=== PATIENT | male | born 1965 | race Caucasian/White ===

== ENCOUNTER 2024-06-19 10:03 | Inpatient (IN) ==
--- NOTE | 2024-06-19 11:07 | XRay Report ---
XR chest 1V portable CLINICAL HISTORY: fever, PNA TECHNIQUE: Single frontal radiograph of the chest was obtained. Comparison: None available at the time of this dictation. FINDINGS: No lines and tubes are seen. The cardiomediastinal silhouette is normal. The lungs are clear. No evid ence of pleural effusion or pneumothorax. IMPRESSION: No acute abnormalities and in particular no radiographic evidence of pneumonia. ACT 112: Negative or not required by law. Electronically signed by: Eric Haider M.D. 06/19/2024 11:06 AM
[2024-06-19 12:05] LABS: Albumin Globulin Ratio 1.1 (0.9-2); Albumin Level 3.9 gm/dl (3.4-5.0); BUN Creatinine Ratio 18.6 (10-20); Calcium 8.9 mg/dl (8.6-10.3); Creatinine Clr Calc Pharmacy 71.3 ml/min; Est GFR (African American) 78.9 ml/min; Est GFR (Non-African American) 68.1 ml/min; Globulin 3.6 gm/dl (2.5-4.0); Potassium 3.8 mmol/L (3.5-5.1); Total Protein 7.5 gm/dl (6.0-8.3)
[2024-06-19 12:11] LABS: Hematocrit (blood only) 37.2 % (42.0-52.0); Hemoglobin 12.7 g/dl (14.0-18.0); Mean Corpuscular Hemoglobin 30.7 pg (25.0-34.0); Mean Corpuscular Hgb Conc 34.1 g/dL (32.0-36.0); Mean Corpuscular Volume 89.9 fL (80.0-100.0); Platelet Count 22 K/uL (130-400); RDW Standard Deviation 46.2 fL (36.4-46.3); Red Blood Count 4.14 M/uL (4.70-6.10); White Blood Count 4.58 K/ul (4.8-10.8)
[2024-06-19 12:18] LABS: Basophils # (auto) 0.02 K/uL (0.00-0.20); Basophils % (auto) 0.4 %; Immature Granulocytes # (auto) 0.02 K/uL (0.01-0.20); Immature Granulocytes % (auto) 0.4 %; Lymphocytes # (auto) 0.95 K/uL (1.20-3.40); Lymphocytes % (auto) 20.7 %; Monocytes % (auto) 4.4 %; Neutrophils # (auto) 3.39 K/uL (1.40-6.50); Neutrophils % (auto) 74.1 %
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
[2024-06-19 12:35] LABS: Echinocytes 1+; Parasites Present; Platelet Estimate Signific. Decreased (Normal)
[2024-06-19 12:46] LABS: Adenovirus PCR Not Detected (NotDetected); Bordetella parapertussis PCR Not Detected (NotDetected); Bordetella pertussis PCR Not Detected (NotDetected); Chlamydia pneumoniae PCR Not Detected (NotDetected); Coronavirus 229E PCR Not Detected (NotDetected); Coronavirus CoV-2 (COVID19)PCR Not Detected (NotDetected); Coronavirus HKU1 PCR Not Detected (NotDetected); Coronavirus NL63 PCR Not Detected (NotDetected); Coronavirus OC43PCR Not Detected (NotDetected); Human Metapneumovirus PCR Not Detected (NotDetected); Influenza A PCR Not Detected (NotDetected); Influenza B PCR Not Detected (NotDetected); Mycoplasma pneumoniae PCR Not Detected (NotDetected); Parainfluenza Virus 1 PCR Not Detected (NotDetected); Parainfluenza Virus 2 PCR Not Detected (NotDetected); Parainfluenza Virus 3 PCR Not Detected (NotDetected); Parainfluenza Virus 4 PCR Not Detected (NotDetected); Respiratory Syncytial VirusPCR Not Detected (NotDetected); Rhinovirus/Enterovirus PCR Not Detected (NotDetected)
[2024-06-19] MEDS: AZITHROMYCIN 500 MG in DEXTROSE 5% 250 ML IV ONE (12:54)
[2024-06-19] MEDS: ATOVAQUONE 750 MG/5 ML UDC PO SCH (12:54)
[2024-06-19 13:03] LABS: Lyme Screen Rflx Confirmation Positive (Negative)
[2024-06-19] MEDS ORDERED: DEXTROSE 50% 50 ML SYRINGE IV PRN (13:35)
[2024-06-19] MEDS ORDERED: CARBOHYDRATES FOR HYPOGLYCEMIA PO PRN ×2 (13:35→15:39)
[2024-06-19] MEDS ORDERED: GLUCAGON FOR INJ 1 MG VIAL SQ PRN (13:35)
[2024-06-19] MEDS ORDERED: MELATONIN 3 MG TAB PO PRN (13:35)
[2024-06-19] MEDS ORDERED: GLUCOSE 10 TAB/TUBE PO PRN (13:35)
[2024-06-19] MEDS ORDERED: GLUCOSE 40% GEL 15 GM TUBE PO PRN (13:35)
[2024-06-19] MEDS ORDERED: ONDANSETRON INJ 2 MG/ML 2 ML VIAL IV PRN (13:35)
[2024-06-19 13:37] LABS: Lyme Ab IgG 2nd Tier Confirm Positive (Negative); Lyme Ab IgM 2nd Tier Confirm Positive (Negative)
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
[2024-06-19] MEDS: SODIUM CHLORIDE 0.9% 1,000 ML IV SCH (14:11)
[2024-06-19] MEDS: cefTRIAXone SODIUM 2,000 MG/50 ML BAG IV SCH (14:11)
--- OUTSIDE RECORDS SUMMARY | 2024-06-19 15:29 | External Medical Summary | Continuity of Care Document ---
Author Name Unknown Organization [facility] [address] [place] [phone] Care Team Providers Care Power And Recovery Superintendent Name Role Phone Jem Lei Primary Care Physician [phone] Encounter [facility] [id number] Date(s): 05/10/24 - 05/10/24 [facility] [address] [facility] [address] [facility] [address] [place] [address] [phone] Encounter Diagnosis Shoulder pain, right(Discharge Diagnosis) - 05/10/24 Discharge Disposition: Home or Self Care Attending Physician: DO Lei Franklin J Allergies, Adverse Reactions, Alerts No Known Allergies Assessment and Plan Extracted from: Title:Office Visit Note Author:GABBIE Castro, Stacie Hernandez Date:05/10/24 1.Shoulder pain, right STATUS:Acute, uncomplicated illness/injury DATA:Labs reviewed. GOAL:Maintain stability. PLAN:Cont current monitoring. .Medrol dose pack as directed Continue icing and stretching If health care coach not beneficial, will proceed with physical therapy Patient to call in 7-10 days with progress report, sooner if symptoms worsening Time spent on pre-visit plannin min Face to face time spent w/ patient: 16 min Time spent documenting pertinent clinical information into the EMR: 4 min Total time: 23 min Immunizations Given and Recorded Vaccine Date Status Refusal Reason SARS-CoV-2 (COVID-19) mRNA-1273 vaccine 1 03/24/21 Recorded SARS-CoV-2 (COVID-19) mRNA-1273 vaccine 2 02/24/21 Recorded 1Result Comment: 2022-11-17: Historical information-source unspecified 2Result Comment: 2022-11-17: Historical information-source unspecified Medications Medrol Dosepak 4 mg oral tablet Start: 05/10/24 10:26:00 AM EDT, See Instructions, Disp# 21 tab, Take as directed on package labelingfor 6 days., Pharmacy: [id number] Start Date: 05/10/24 Stop Date: 05/16/24 Status: Ordered MetFORMIN (Eqv-Glucophage XR) 500 mg oral tablet, extended release Start: 03/01/24 4:41:00 PM EDT, 1 tab, PO, Daily, Disp# 90 tab, Refills: 1, Pharmacy: [id number] Start Date: 03/01/24 Stop Date: 08/28/24 Status: Ordered multivitamin Start: 05/17/19 1:50:00 PM EDT, 1 tab, PO, Daily Start Date: 05/17/19 Status: Ordered rosuvastatin 10 mg oral tablet Start: 08/25/23 4:24:00 PM EDT, 1 tab, PO, qhs, Disp# 90 tab, Refills: 3, Pharmacy: [id number] Start Date: 08/25/23 Stop Date: 08/19/24 Status: Ordered Shingrix intramuscular injection Start: 11/17/22 3:51:00 PM EST, 0.5 mL, IM, ONCE, Disp# 1 each, Pharmacy: [id number] Start Date: 11/17/22 Status: Ordered ZyrTEC 10 mg oral tablet Start: 12/03/21 8:29:00 AM EST, 1 tab, PO, Daily, PRN: as needed for allergy symptoms Start Date: 12/03/21 Status: Ordered Mental Status 05/10/24 Barriers to Learning one year None evide nt Mandatory Health Literacy Documentation Yes Health Literacy Communication Barriers N ever Primary Language Persian Problem List Condition Confirmation Course Effective Dates Status Health St atus Informant Elevated cholesterol Confirmed Active IFG (impaired fasting glucose) Confirmed Active PVD (posterior vitreous detachment) Confirmed Active Weight disorder Confirmed Active Diagnosis Diagnosis Type Effective Dates Health Status Cl inical Service Informant Shoulder pain, right Discharge Diagnosis 05/10/24 Non-Specified Procedures Procedure Date Related Diagnosis Body Site Status cologuard 1 06/16/19 Completed Vasectomy Completed 1negative Vital Signs Most recent to oldest [Reference Range]: 1 Patient Weight 81.7 kg (05/10/24 10:06 AM) Temperature [36.5-37.9 DegC] 36.6 DegC (05/10/24 10:06 AM) Heart Rate 60 bpm (05/10/24 10:06 AM) Respiratory Rate 20 br/min (05/10/24 10:06 AM) Blood Pressure 120/76mmHg (05/10/24 10:06 AM) Cuff Pulse Pressure 44 mmHg (05/10/24 10:06 AM) Social History Social History Type Response Smoking Status Never smoked cigaret zane Sex FCM Outpt Note * GABBIE Castro, Katrin Hernandez: PERFORM Event Display: FCM Outpt Note Authored Date: [id number] Chief Complaint right shoulder pain x five days History of Present Illness Patient is a 58 yo male who presents for acute visit (R) shoulder pain: -Has acute posteriorshoulder pain x 5 days -Has been driving excessive distances over the past month -Had similar -Specific movements such as pushing, moving his mouse, driving all increase his pain. -Has associated numbness in his right arm/hand -Ibuprofen did not help nor did Lidocaine -Icing, tennis balls both seem to help -Denies HILLIARD, vision changes Review of Systems ROS per HPI Physical Exam Vitals & Measurements T:36.6C HR:60(Monitored) RR:20 BP:120/76 SpO2:98% WT:81.7kg WT:81.700kg(Dosing) PHQ2 Data(Data Documented on:05/10/2024 10:03) Emotional health assessment NEGATIVE Gen Appearance: Well developed, well nourishedNAD. A&O x 3. HEENT: Head is normocephalic/atraumatic. EXTREMITIES: No cyanosis, clubbing or edema. MUSCULOSKELETAL: Intact arm ROM with diffuse pain in the trapezius.. Diffuse R paraspinal and trap TTP and palpable spasm/knotting appreciated. Neg spurlings bilat. NEUROLOGICAL: Grossly non-focal exam. SKIN: Warm and dry without any rash. Assessment/Plan 1.Shoulder pain, right STATUS:Acute, uncomplicated illness/injury DATA:Labs reviewed. GOAL:Maintain stability. PLAN:Cont current monitoring. .Medrol dose pack as directed Continue icing and stretching If health care coach not beneficial, will proceed with physical therapy Patient to call in 7-10 days with progress report, sooner if symptoms worsening Time spent on pre-visit plannin min Face to face time spent w/ patient: 16 min Time spent documenting pertinent clinical information into the EMR: 4 min Total time: 23 min Problem List/Past Medical History Ongoing Elevated cholesterol IFG (impaired fasting glucose) PVD (posterior vitreous detachment) Weight disorder Procedure/Surgical History cologuard| Service Date: 06/16/2019Vasectomy Medications cetirizine(ZyrTEC 10 mg oral tablet), 10 mg= 1 tab, PO, Daily, PRN metFORMIN(MetFORMIN (Eqv-Glucophage XR) 500 mg oral tablet, extended release), 500 mg= 1 tab, PO, Daily, 1 refills methylPREDNISolone(Medrol Dosepak 4 mg oral tablet), See Instructions multivitamin, 1 tab, PO, Daily rosuvastatin(rosuvastatin 10 mg oral tablet), 10 mg= 1 tab, PO, qhs, 3 refills zoster vaccine, inactivated(Shingrix intramuscular injection), 0.5 mL, IM, ONCE Allergies NKA Social History Smoking Status Never smoked cigarettes Family History Hyperlipidemia: Mother and Brother. Health Status Family Member(s) Father: History is negative Immunizations Vaccine Date Status SARS-CoV-2 (COVID-19) mRNA-1273 vaccine 03/24/2021 Recorded Comments : 2022-11-17: Historical information-source unspecified SARS-CoV-2 (COVID-19) mRNA-1273 vaccine 02/24/2021 Recorded Comments : 2022-11-17: Historical information-source unspecified Recommendations Health Maintenance Pending(in the next year) Due Adult Influenza Vaccine due05/07/24and every 1year Adult COVID-19 Vaccination due05/10/24Unknown Frequency Adult Social Determinants of Health Screening due05/10/24Unknown Frequency Adult Tdap/Td Vaccine due05/10/24Unknown Frequency Hepatitis C Screening due05/10/24One-time only Shingles Vaccine due05/10/24One-time only Satisfied(in the past 1 year) Satisfied Body Mass Index on08/25/23.Satisfied by OBDULIO Núñez Emma Electronic Signature on File Electronically Reviewed/Signed by: Katrin Castro PA-C Author Signature Dt/Tm:05/10/2024 10:28 AM Department of Family Medicine [facility] Patient Care team information Care Team Personnel Name: DO Lei Franklin J Position: Physician - Family Med Member Role: Primary Care Provider Address: Address: [address] [phone] Care Team Related Persons Name: FAISAL GONZALEZ Address: [place] Address: home [address] [place], [place] [address] [phone] Name: GUI GONZALEZ Address: [address] [phone]
--- OUTSIDE RECORDS SUMMARY | 2024-06-19 15:29 | External Medical Summary ---
Author Name Unknown Address Unknown Organization : Laboratory Report Ordering Provider Test Date Status Quique Parish 06/09/2024 07:43:00 Final Observation Date Value Abnormality Reference (Units ) Status eAG (mmol/L) 06/13/2024 16:50:00 7.6 (mmol/L ) Final
This test was performed on the Bria ambar c503 platform.
Effective 10/25/23, a change in test platforms from the
Goetz Rnp to the Bria ambar c503 may have shifted
HbA1c results compared to historical results.
Based on laboratory validation testing conducted at
[facility], the Bria platform relative to the Goetz
platform had an average increase in HbA1c value of
< or = 0.3%. This difference is within accepted
variability established by the National Glycohemoglobin
Standardization Program. Note that not all individuals
will have had a shift in their results and direct
comparisons between historical and current results for
testing conducted on different platforms is not
recommended.

Specimen Received d/t: 06/09/2024 22:14:00

Lab test performed by:
[facility], [facility]
[address]
[place] [phone]
Dax Gregory MD eAG (mg/dL) 06/13/2024 16:50:00 137 (mg/dL) Final
Specimen Received d/t: 06/09/2024 22:14:00

Lab test performed by:
[facility]
[address]
[place] [phone]
Dax Gregory MD Hemoglobin A1c/Hemoglobin.total in Blood 06/13/2024 16:50:00 6.4 Above high normal <5.7 (% of total Hgb) Final For someone without known di abetes, a hemoglobin
A1c value between 5.7% and 6.4% is consistent with
prediabetes and should be confirmed with a
follow-up test.

For someone with known diabetes, a value <7%
indicates that their diabetes is well controlled. A1c
targets should be individualized based on duration of
diabetes, age, comorbid conditions, and other
considerations.

This assay result is consistent with an increased risk
of diabetes.

Currently, no consensus exists regarding use of
hemoglobin A1c for diagnosis of diabetes for children.

Specimen Received d/t: 06/09/2024 22:14:00

Lab test performed by:
[facility], [facility]
[address]
[place] [phone]
Dax Gregory MD Performing Location
--- OUTSIDE RECORDS SUMMARY | 2024-06-19 15:29 | External Medical Summary ---
Author Name Unknown Address Unknown Organization : Laboratory Report Ordering Provider Test Date Status Quique Parish 02/23/2024 07:50:00 Final Observation Date Value Abnormality Reference (Units ) Status LDL Chol 02/24/2024 07:31:00 73 (mg/dL (ca lc)) Final Reference range: <100
<b r/>Desirable range <100 mg/dL for primary prevention;
<70 mg/dL for patients with CHD or diabetic patients
with > or = 2 CHD risk factors.

LDL-C is now calculated using the [place] Bernard
calculation, which is a validated novel method providing
better accuracy than the Friedewald equation in the
estimation of LDL-C.
Wm TORRES et al. GHANSHYAM. 2013;310(19): 2061- 2068
(http://education.Mapittrackit/faq/MLN314)

Specimen Received d/t: 02/23/2024 23:56:00

Lab test performed by:
[facility], [facility]
[address]
[place] [phone]
Dax Gregory MD Non HDL Chol 02/24/2024 07:31:00 85 <130 (m g/dL (calc)) Final For patients with diabetes p elsa 1 major ASCVD risk
factor, treating to a non-HDL-C goal of <100 mg/dL
(LDL-C of <70 mg/dL) is considered a therapeutic
option.

Specimen Received d/t: 02/23/2024 23:56:00

Lab test performed by:
[facility], [facility]
[address]
[place] [phone]
Dax Gregory MD Cholesterol [Mass/volume] in Serum or Plasma 02/24/2024 07:31:00 136 <200 (mg/dL) Final
Specimen Received d/t: 02/23/2024 23:56:00

Lab test performed by:
[facility], [facility]
[address]
[place] [phone]
Dax Gregory MD Triglyceride [Mass/volume] i n Serum or Plasma 02/24/2024 07:31:00 50 <150 (mg/dL) Final
Specimen Received d/t: 02/23/2024 23:56:00

Lab test performed by:
[facility], [facility]
[address]
[place] [phone]
Dax Gregory MD Cholesterol.total/Cholestero l in HDL [Mass Ratio] in Serum or Plasma 02/24/2024 07:31:00 2.7 <5 .0 ((calc)) Final
Specimen Received d/t: 02/23/2024 23:56:00

Lab test performed by:
[facility], [facility]
[address]
[place] [phone]
Dax Gregory MD Cholesterol in HDL [Mass/vol ume] in Serum or Plasma 02/24/2024 07:31:00 51 > OR = 40 (mg/dL) Final
Specimen Received d/t: 02/23/2024 23:56:00

Lab test performed by:
[facility], [facility]
[address]
[place] [phone]
Dax Gregory MD Performing Location
--- OUTSIDE RECORDS SUMMARY | 2024-06-19 15:29 | External Medical Summary ---
Author Name Unknown Address Unknown Organization : Laboratory Report Ordering Provider Test Date Status [facility] 06/09/2024 07:43:00 Final Observation Date Value Abnormality Reference (Units ) Status Chloride [Moles/volume] in Serum or Plasma 06/13/2024 16:50:00 103 98-110 (mmol/L) Final
Specimen Received d/t: 06/09/2024 22:14:00

Lab test performed by:
[facility], [facility]
[address]
[place] [phone]
Dax Gregory MD Creatinine [Mass/volume] in Serum or Plasma 06/13/2024 16:50:00 0.96 0.70-1.30 (mg/dL) Fin al
Specimen Received d/t: 06/09/2024 22:14:00

Lab test performed by:
[facility], [facility]
[address]
[place] [phone]
Dax Gregory MD [facility] 06/13/2024 16:50:00 9.4 8.6-10.3 ( mg/dL) Final
Specimen Received d/t: 06/09/2024 22:14:00

Lab test performed by:
[facility], [facility]
[address]
[place] [phone]
Dax Gregory MD Urea nitrogen/Creatinine [Ma ss Ratio] in Serum or Plasma 06/13/2024 16:50:00 SEE NOTE: 6-22 ((c alc)) Final Not Reported: BUN and Creati nine are within
reference range.

Specimen Received d/t: 06/09/2024 22:14:00

Lab test performed by:
[facility], [facility]
[address]
[place] [address]
Dax Gregory MD Potassium [Moles/volume] in Serum or Plasma 06/13/2024 16:50:00 4.0 3.5-5.3 (mmol/L) Jocelyn l
Specimen Received d/t: 06/09/2024 22:14:00

Lab test performed by:
[facility], [facility]
[address]
[place] [address]
Dax Gregory MD Urea nitrogen [Mass/volume] in Serum or Plasma 06/13/2024 16:50:00 14 7-25 (mg/dL) Final
Specimen Received d/t: 06/09/2024 22:14:00

Lab test performed by:
[facility], [facility]
[address]
[place] [address]
Dax Gregory MD Carbon dioxide, total [Moles /volume] in Serum or Plasma 06/13/2024 16:50:00 30 20-32 (mmol/L) Fin al
Specimen Received d/t: 06/09/2024 22:14:00

Lab test performed by:
[facility], [facility]
[address]
[place] [address]
Dax Gregory MD Sodium [Moles/volume] in Ser um or Plasma 06/13/2024 16:50:00 139 135-146 (mmol/L) Jocelyn l
Specimen Received d/t: 06/09/2024 22:14:00

Lab test performed by:
[facility], [facility]
[address]
[place] [phone]
Dax Gregory MD eGFR 06/13/2024 16:50:00 92 > OR = 60 (mL/min/1.73m2) Final
Specimen Received d/t: 06/09/2024 22:14:00

Lab test performed by:
[facility], [facility]
[address]
[place] [phone]
Dax Gregory MD Glucose [Mass/volume] in Serum or Plasma 06/13/2024 16:50:00 117 Above high normal 65-99 (mg/dL) Final
Fasting reference inte rval

For someone without known diabetes, a glucose value
between 100 and 125 mg/dL is consistent with
prediabetes and should be confirmed with a
follow-up test.

Specimen Received d/t: 06/09/2024 22:14:00

Lab test performed by:
[facility], [facility]
[address]
[place] [phone]
Dax Gregory MD Performing Location
--- OUTSIDE RECORDS SUMMARY | 2024-06-19 15:29 | External Medical Summary ---
Author Name Unknown Address Unknown Organization : Laboratory Report Ordering Provider Test Date Status Quique Parish 02/23/2024 07:50:00 Final Observation Date Value Abnormality Reference (Units ) Status eAG (mg/dL) 02/24/2024 07:31:00 134 (mg/dL) Final
Specimen Received d/t: 02/23/2024 23:56:00

Lab test performed by:
[employer], [facility]
[address]
[place] [address]
Dax Gregory MD Hemoglobin A1c/Hemoglobin.total in Blood 02/24/2024 07:31:00 6.3 Above high normal <5.7 (% of total [...] of diabetes for children.

Specimen Received d/t: 02/23/2024 23:56:00

Lab test performed by:
[employer] [facility], [facility]
[address]
[place] [phone]
Dax Gregory MD eAG (mmol/L) 02/24/2024 07:31:00 7.4 (mmol/L ) Final
This test was performed on the Bria ambar c503 platform.
Effective 10/25/23, a change in test platforms from the
[employer]etz [employer] to the Bria ambar c503 may have shifted
HbA1c results compared to historical results.
Based on laboratory validation testing conducted at
[facility], the Bria platform relative to the Goetz
[...] platforms is not
recommended.

Specimen Received d/t: 02/23/2024 23:56:00

Lab test performed by:
[facility]
[address]
[place] [phone]
Dax Gregory MD Performing Location
[2024-06-19] MEDS: INSULIN ASPART PER UNIT CHARGE SC SCH (17:22)
[2024-06-19] MEDS: ACETAMINOPHEN 325 MG TAB PO PRN (20:56)
[2024-06-19] MEDS: LANTUS PER UNIT CHARGE SQ SCH (20:57)
[2024-06-20] MEDS: ACETAMINOPHEN 500 MG TAB PO ONE (07:39)
[2024-06-20 07:51] LABS: Estimated Average Glucose 140 mg/dl; Hemoglobin A1C 6.5 % (4.5-5.6)
[2024-06-20 07:55] LABS: Hematocrit (blood only) 27.6 % (42.0-52.0); Hemoglobin 9.7 g/dl (14.0-18.0); Mean Corpuscular Hemoglobin 30.3 pg (25.0-34.0); Mean Corpuscular Hgb Conc 35.1 g/dL (32.0-36.0); Mean Corpuscular Volume 86.3 fL (80.0-100.0); Platelet Count 21 K/uL (130-400); RDW Standard Deviation 44.2 fL (36.4-46.3)
[2024-06-20 08:17] LABS: Albumin Level 2.8 gm/dl (3.4-5.0); Bilirubin,Total 2.4 mg/dl (0.2-1.0); Calcium 7.4 mg/dl (8.6-10.3); Creatinine Clr Calc Pharmacy 80.1 ml/min; Est GFR (African American) 90.9 ml/min; Est GFR (Non-African American) 78.4 ml/min; Globulin 2.9 gm/dl (2.5-4.0); Total Protein 5.7 gm/dl (6.0-8.3)
[2024-06-20 08:29] LABS: Thyroid Stimulating Hormone 8.233 uIu/ml (0.300-4.500)
[2024-06-20 08:38] LABS: Basophils # (auto) 0.02 K/uL (0.00-0.20); Basophils % (auto) 0.4 %; Immature Granulocytes # (auto) 0.05 K/uL (0.01-0.20); Lymphocytes # (auto) 1.61 K/uL (1.20-3.40); Lymphocytes % (auto) 32.9 %; Monocytes # (auto) 0.52 K/uL (0.11-0.59); Monocytes % (auto) 10.6 %; Neutrophils % (auto) 55.1 %; Polychromasia 1+
[2024-06-20 09:10] LABS: T4 Free Thyroxine 0.8 ng/dl (0.61-1.60)
[2024-06-20 10:14] LABS: Chol HDL Ratio 32.3 (0-5)
--- NOTE | 2024-06-20 12:10 | Medical Student Progress Note ---
Date of Service June 20, 2024 Assessment & Plan (1) Diabetes mellitus due to underlying condition: (2) Acute Lyme disease: (3) Babesiosis: Plan 1. Acute babesiosis and Acute Lyme disease Coinfection - Coinfection - Continue atovaquone 750 mg twice daily for babesiosis - Continue azithromycin 500 mg IV daily for babesiosis - Received ceftriaxone 2 g IV yesterday for Lyme Disease. Patient is stable and without neuroborreliosis, lyme carditis, or resistant lyme arthritis, so we will cancel IV ceftriaxone for Lyme at this time and instead treat with doxycycline 100 mg PO BID. Doxy would also cover for anaplasmosis, should he have that as an undetected tickborne illness. - Transaminitis secondary to acute tickborne illness infection. LFTs are stable today at AST 298 and ALT 218. Will continue to monitor LFTs. - Thrombocytopenia secondary to tickborne illness infection. Platelets are stable at 21. Monitor daily for platelet count and signs of bleeding. - Leukopenia secondary to tickborne illness. WBCs increased to 4.9 since yesterday. Will continue to monitor daily. - Parasitemia 2% - Will consider d/c home once pt's lab abnormalities have stabilized and he has been fever free for 24 hr. 2. Hyponatremia - Na of 130 yesterday, 131 today - Likely secondary to hypovolemic hyponatremia - Patient is not symptomatic, so we will continue to monitor - AM CMP, CBC 3. Dyslipidemia. Hold statin therapy secondary to transaminitis. 4. Diabetes mellitus type 2 [id number]. We have ordered Accu-Cheks to be called less than 80 or greater than 180. - Glucoses of 102-107 today Admission and Anticipated Discharge Date Admission Date: June 19, 2024 Supervising Attestation I personally examined the patient and verified all brown points of history and exam, discussed case, and agree with decision making with Dr Lantigua and Anny Syed MS4 Feeling a little bit better than yesterday. Still fairly weak, but no fevers yet today and bodyaches are slightly improved. Vitals noted, in general he is awake and alert pleasant no distress. HEENT normocephalic atraumatic mucous membranes moist. Breathing unlabored no accessory muscle use good effort. Skin without rashes pallor or icterus. Neuro without focal deficits. Babesiosis with concomitant Lymesepsis present on admissionfortunately improving. Suspect the predominance of his sepsis was due to Babesia more so than the Lyme diseasebut obviously both require treatment. Parasitemia 2% which is reassuringsuspect his lab abnormalities will start to stabilize, hem olytic anemia will likely stabilizecontinue to follow at least into tomorrow. Continue azithromycin and atovaquone for babesiosis, switch to doxycycline to cover for Lyme. Hopefully home once he is 24 hours afebrile, presuming that he is also continuing to feel better and his lab abnormalities have stabilized. otherwise as above Valorie Harry is a 58-year-old male who presented yesterday in the emergency department with complaints of fatigue and on and off fever x 2 weeks. In the emergency department he was found to be thrombocytopenic, leukopenic, and anemic with some transaminitis and hyperbilirubinemia. Babesiosis smear appeared positive and Lyme test appeared positive. Today, reports his fatigue is minimally improved. He is not feeling as feverish, but is very diaphoretic. He has had intermittent chills and dry cough. Denies nausea, vomiting, diarrhea, constipation, abdominal pain, myalgias/arthralgias, chest pain, SOB, palpitations, congestion, vision changes, lightheadedness, dizziness. Review of Systems Review of Systems: As noted in HPI. Physical Exam Physical Exam: General: Pleasant 58-year-old male is alert and oriented x 3, exam appears his stated age. He interacts appropriately pleasantly. HEENT: Normocephalic atraumatic. No scleral icterus, no conjunctival injection. Septum is in the midline, nose is without discharge, oral mucosa is pink and dry without lesion. NECK: Supple, no rigidity, full ROM. HEART: Regular rate and rhythm. No murmurs, rubs, gallops. LUNGS: Clear to auscultation bilaterally ABDOMEN: Soft, nontender, nondistended EXTREMITIES: Full ROM, no peripheral cyanosis or edema. INTEGUMENTARY: No magnolia rashes appreciated on his skin. No petechiae. NEUROLOGICAL: No focal deficit elicited upon examination. Results & Data Vital Signs (Past 12 Hours) Vital Signs Temp Pulse Resp BP Pulse Ox O2 Del Method 06/20/24 10:23 37.2 C 89 18 105/68 92 Room Air 06/20/24 08:26 37.2 C 06/20/24 07:13 39.0 C H 103 H 16 124/69 90 Room Air 06/19/24 23:50 36.9 C Laboratory Results 06/20/24 09:23 Blood Parasites Smear - Preliminary Blood Blood Parasite Smear ID - Pending 06/20/24 06/20/24 06/20/24 11:45 07:37 07:08 WBC 4.90 RBC 3.20 L Hgb 9.7 L D Hct 27.6 L MCV 86.3 MCH 30.3 MCHC 35.1 RDW Std Deviation 44.2 RDW Coeff of [place] 14.0 Plt Count 21 L* Immature Gran % (Auto) 1.0 Neut % (Auto) 55.1 Lymph % (Auto) 32.9 Redwood % (Auto) 10.6 Eos % (Auto) 0.0 Baso % (Auto) 0.4 Neut # (Auto) 2.70 Lymph # (Auto) 1.61 Redwood # (Auto) 0.52 Eos # (Auto) 0.00 Baso # (Auto) 0.02 Immature Gran # (Auto) 0.05 Polychromasia 1+ Peripher Smr Path Cons Sodium 131 L Potassium 4.0 Chloride 101 Carbon Dioxide 24 Anion Gap 6 BUN 21 Creatinine 1.05 Est Cr Clr Drug Dosing 80.1 Est GFR ( Amer) 90.9 Est GFR (Non-Af Amer) 78.4 BUN/Creatinine Ratio 20.0 Glucose 107 H POC Glucose 102 H 107 H Estimat Average Glucose 140 Hemoglobin A1c 6.5 H Calcium 7.4 L Magnesium 2.0 Total Bilirubin 2.4 H AST 298 H ALT 218 H Alkaline Phosphatase 75 Total Protein 5.7 L D Albumin 2.8 L Globulin 2.9 Albumin/Globulin Ratio 1.0 Triglycerides 337 H Cholesterol 97 LDL Cholesterol, Calc 27 VLDL Cholesterol, Calc 67 H HDL Cholesterol 3 Cholesterol/HDL Ratio 32.3 H TSH 8.233 H Free T4 0.80 Lyme Disease Screen Lyme Tier 2 IgG Confirm Lyme Tier 2 IgM Confirm Monoscreen 06/19/24 06/19/24 06/19/24 20:25 16:38 15:23 WBC RBC Hgb Hct MCV MCH MCHC RDW Std Deviation RDW Coeff of Chester Plt Count Immature Gran % (Auto) Neut % (Auto) Lymph % (Auto) Redwood % (Auto) Eos % (Auto) Baso % (Auto) Neut # (Auto) Lymph # (Auto) Redwood # (Auto) Eos # (Auto) Baso # (Auto) Immature Gran # (Auto) Polychromasia Peripher Smr Path Cons Sodium Potassium Chloride Carbon Dioxide Anion Gap BUN Creatinine Est Cr Clr Drug Dosing Est GFR ( Amer) Est GFR (Non-Af Amer) BUN/Creatinine Ratio Glucose POC Glucose 97 251 H 225 H Estimat Average Glucose Hemoglobin A1c Calcium Magnesium Total Bilirubin AST ALT Alkaline Phosphatase Total Protein Albumin Globulin Albumin/Globulin Ratio Triglycerides Cholesterol LDL Cholesterol, Calc VLDL Cholesterol, Calc HDL Cholesterol Cholesterol/HDL Ratio TSH Free T4 Lyme Disease Screen Lyme Tier 2 IgG Confirm Lyme Tier 2 IgM Confirm Monoscreen 06/19/24 11:06 WBC RBC Hgb Hct MCV MCH MCHC RDW Std Deviation RDW Coeff of [place] Plt Count Immature Gran % (Auto) Neut % (Auto) Lymph % (Auto) Redwood % (Auto) Eos % (Auto) Baso % (Auto) Neut # (Auto) Lymph # (Auto) Redwood # (Auto) Eos # (Auto) Baso # (Auto) Immature Gran # (Auto) Polychromasia Peripher Smr Path Cons Sodium Potassium Chloride Carbon Dioxide Anion Gap BUN Creatinine Est Cr Clr Drug Dosing Est GFR ( Amer) Est GFR (Non-Af Amer) BUN/Creatinine Ratio Glucose POC Glucose Estimat Average Glucose Hemoglobin A1c Calcium Magnesium Total Bilirubin AST ALT Alkaline Phosphatase Total Protein Albumin Globulin Albumin/Globulin Ratio Triglycerides Cholesterol LDL Cholesterol, Calc VLDL Cholesterol, Calc HDL Cholesterol Cholesterol/HDL Ratio TSH Free T4 Lyme Disease Screen Positive H Lyme Tier 2 IgG Confirm Positive H Lyme Tier 2 IgM Confirm Positive H Monoscreen Negative
--- NOTE | 2024-06-20 12:41 | Billing Data ---
Date of Service June 20, 2024 Coding Level of Care Code 28195 SUB INP/OBS CARE MIN
[2024-06-20] MEDS: AZITHROMYCIN 500 MG in DEXTROSE 5% 250 ML IV SCH (13:19)
[2024-06-20 14:12] LABS: EBV Nuclear Ag Antibody <18.00 U/mL; EBV Virus Capsid Ag IgG Ab <18.00 U/mL; Epstein Barr Virus Early Ag Ab <9.00 U/mL
[2024-06-20] MEDS: DOXYCYCLINE HYCLATE 100 MG CAP PO SCH (19:33)
[2024-06-21 08:12] LABS: Hematocrit (blood only) 25.8 % (42.0-52.0); Hemoglobin 9.1 g/dl (14.0-18.0); Mean Corpuscular Hemoglobin 30.3 pg (25.0-34.0); Mean Corpuscular Hgb Conc 35.3 g/dL (32.0-36.0); Platelet Count 22 K/uL (130-400); RDW Coefficient of Variation 14.5 % (11.5-14.5); RDW Standard Deviation 44.9 fL (36.4-46.3); White Blood Count 5.72 K/ul (4.8-10.8)
[2024-06-21 08:33] LABS: Albumin Level 2.7 gm/dl (3.4-5.0); BUN Creatinine Ratio 15.8 (10-20); Calcium 7.3 mg/dl (8.6-10.3); Creatinine Clr Calc Pharmacy 88.6 ml/min; Est GFR (African American) 102.6 ml/min; Est GFR (Non-African American) 88.5 ml/min; Globulin 2.7 gm/dl (2.5-4.0); Potassium 3.9 mmol/L (3.5-5.1); Total Protein 5.4 gm/dl (6.0-8.3)
[2024-06-21 09:00] LABS: ANC (manual) 2.23 K/uL (1.4-6.5); Basophils # (manual) 0.11 K/uL (0-0.2); Basophils % (manual) 2 %; Large Granular Lymph # (manua 0.69 K/uL; Large Granular Lymph % (manual) 12 %; Lymphocytes # (manual) 2.52 K/uL (1.2-3.4); Lymphocytes % (manual) 44 %; Monocytes # (manual) 0.17 K/uL (0.11-0.59); Monocytes % (manual) 3 %; Neutrophils # (manual) 2.23 K/uL (1.40-6.50); Neutrophils % (manual) 39 %
--- NOTE | 2024-06-21 13:28 | Discharge Summary ---
Date of Service June 21, 2024 Admission HPI Per Admitting Provider Very pleasant 58-year-old male who presents today in the emergency department with complaints of fatigue and on and off fever x 2 weeks. He denies any other symptoms. He presented to emergency department for further evaluation and treatment. In the emergency department he was found to be thrombocytopenic with some transaminitis and hyperbilirubinemia. Babesiosis smear appears positive and Lyme test appears positive. His other laboratory studies include thrombocytopenia, leukopenia, mild hyponatremia and a random blood glucose of 168. Course in the emergency department patient received atovaquone 750 mg orally and azithromycin 500 mg IV. Regarding the patient further evaluation and treatment. Will continue the dual antimicrobial therapy for babesiosis including atovaquone: 750 twice daily as well as azithromycin 500 IV daily. Will add ceftriaxone 2 g IV daily for the Lyme disease. Will monitor the patient's LFTs and hematology labs daily.. Will stop the patient's statin therapy. She actually began to hold this 2 days ago due to his aches and pains. Will use Tylenol but only every 12 hours given the LFTs:, For fever. Admission Exam Per Admitting Provider In General: Pleasant 58-year-old male is alert vented x 3, exam appears her stated age. Accompanied by his at the time of my examination. He interacts appropriately pleasantly. HEENT: Normocephalic atraumatic pupils are equal round and reactive to light bilaterally. No scleral icterus no conjunctival injection external auditory canals are patent septum is in the midline nose is without discharge oral mucosa is pink and dry without lesion. NECK: Supple no rigidity no lymphadenopathy no thyromegaly no carotid bruits no JVD no masses. HEART: Regular rate and rhythm I do not appreciate any ectopy or rub. No murmur. LUNGS: Clear to auscultation bilaterally and anteriorly with no evidence of adventitious sounds/wheezes rales or rhonchi. ABDOMEN: Soft nontender, no rebound, no peritoneal signs, positive bowel sounds, no appreciable organomegaly. EXTREMITIES: Intact, no peripheral cyanosis, clubbing or edema. Strength is 5 out of 5 in extremities x4, no pathological reflexes. No magnolia rashes appreciated on his skin. He has had Lyme disease years ago and he did have a classic bull's-eye rash, erythema migrans. NEUROLOGICAL: Cranial nerves II through XII are grossly intact with no focal deficit elicited upon examination. Currently prescribed. Present. Principal Diagnosis Babesiosis/Lyme disease Discharge Exam General: Pleasant 58-year-old male is alert and oriented x 3, exam appears his stated age. He interacts appropriately pleasantly. HEENT: Normocephalic atraumatic. No scleral icterus, no conjunctival injection. Septum is in the midline, nose is without discharge. NECK: Supple, full ROM. HEART: Regular rate and rhythm. No murmurs, rubs, gallops. LUNGS: Clear to auscultation bilaterally ABDOMEN: Soft, nontender, nondistended EXTREMITIES: Full ROM, no peripheral cyanosis or edema. INTEGUMENTARY: No magnolia rashes appreciated on his skin. No petechiae. NEUROLOGICAL: No focal deficit elicited upon examination. Discharge Data Allergies Allergy/AdvReac Type Severity Reaction Status Date / Time No Known Allergies Allergy Unverified 06/19/24 14:14 Hospital Course (1) Diabetes mellitus due to underlying condition: (2) Acute Lyme disease: (3) Babesiosis: Plan 1. Acute babesiosis and Acute Lyme disease Coinfection - Coinfection - Continue atovaquone 750 mg twice daily for babesiosis while admitted - Continue azithromycin 500 mg IV daily for babesiosis while admitted - Received ceftriaxone 2 g IV on 06/19 for Lyme Disease. Patient is stable and without neuroborreliosis, lyme carditis, or resistant lyme arthritis, so we canceled IV ceftriaxone for Lyme and started doxycycline 100 mg PO BID on 06/20. Doxy would also cover for anaplasmosis, should he have that as an undetected tickborne illness. - Transaminitis secondary to acute tickborne illness infection. LFTs are stable today at AST 272 and ALT 218. - Thrombocytopenia secondary to tickborne illness infection. Platelets are stable at 22 - stable - Leukopenia secondary to tickborne illness. WBCs increased to 5.72 - stable - Parasitemia 2% - Pt's lab abnormalities have stabilized and he has been fever free for about 24 hr, so we will discharge him. - He will continue atovaquone 750 mg PO BID and doxycycline 100 mg PO BID x 7 days. He will be transitioned from azithromycin 500 mg IV QD to PO when discharged x 7 days. - He will follow up in two weeks for labs to continue to ensure his LFTs and blood cell counts are stabilizing/improving. 2. Hyponatremia - Na of 130 on admission, 132 today - Likely secondary to hypovolemic hyponatremia - Patient has never been symptomatic 3. Dyslipidemia. - Held statin therapy while admitted secondary to transaminitis. - Since he takes low dose of 10 mg rosuvastatin, and stable LFTs, safe to resume upon discharge. 4. Diabetes mellitus type 2 [id number]. We have ordered Accu-Cheks to be called less than 80 or greater than 180. - Glucoses of 102-122 today Total Time Total Time Spent Total Time Spent (In Minutes): <30 Discharge Plan Discharge Items Patient Disposition: Home - Self-Care Reason For Visit: lyme disease/babesiosis Discharge Diagnosis: lyme disease/babesiosis Condition on Discharge: Good Activity: Resume your previous activity Activity Comment: as tolerated Non-emergency contact: Primary Care Provider Call non-emergency contact if: you have any medication questions and your symptoms worsen Follow-up/Referrals: Jem Lei, [Primary Care Provider] - Diet: Regular Addtl Attending Provider Instructions: You were admitted to the hospital for lyme disease and babesiosis. You were found to have a positive lyme disease test and a blood smear which was positive for Babesia. You also had low platelets and hemoglobin and elevated liver enzymes, which are consistent with your tickborne illnesses. Your lab values have stabilized, and your fever has mostly resolved. Your fatigue has also improved. Hence, you are stable for discharge. Continue atovaquone 750 mg twice daily and azithromycin 500 mg once daily for babesiosis. You will also continue taking doxycycline 100 mg twice daily for lyme disease. All of these medications should be continued for 7 days. A discharge summary will be sent to your primary care physician to ensure continuity of care. Please bring this discharge summary with you to your next office appointment so that your provider can review it at that time. Follow-up appointments: You have a hospital follow-up appointment scheduled with [facility] on 06/30/24 at 3:00 (arrival time 2:45) with Dr. Gil. * You will also follow up for labs in two weeks. Keep all your follow-up appointments as already scheduled. If you cannot make an appointment, notify your provider. Medications: Your medication list has been reviewed and reconciled upon discharge to ensure accuracy and continuity of care. An updated list of all your medications is included with your hospital discharge paperwork. Please review this list closely, and make note of any changes. We sent the following antibiotics to your pharmacy: atovaquone 750 mg twice daily, azithromycin 500 mg once daily, doxycycline 100 mg twice daily for babesiosis and lyme disease. All of these medications will be continued for 7 days. If you have any issues filling these prescriptions, please call [phone] and ask to leave a message for Dr. Josh Lantigua. Take your medications as instructed; do not skip a dose of your medicines. Make sure all of your doctors know every medicine you are taking (including over-the- counter medicines, vitamins, and supplements). Call your primary care provider before taking any new medicines (including [id number] medicines, vitamins, and supplements), because some of these may interact with your current medications, or may make your symptoms worse. Tell your primary care provider if you cannot afford your medications. CONTACT YOUR PRIMARY CARE PROVIDER if you experience any of the following: Increased pain Trouble urinating Difficulty following your treatment plan, or difficulty taking medications CALL 911 OR GO TO THE EMERGENCY DEPARTMENT if you experience any of the following: Sudden, severe abdominal pain or nausea/vomiting Severe chest pain, or chest pain that radiates (moves) to your jaw or arm Sudden, severe shortness of breath or difficulty breathing Thank you for allowing us to participate in your care. Pending Studies at Discharge: No Stand-Alone Forms: My [facility] Medications and DC Order Prescriptions: New doxycycline hyclate 100 mg Capsule 100 mg PO BID 7 Days Qty: 14 0RF atovaquone [Mepron] 750 mg/5 mL Suspension 750 mg PO Q12H 7 Days Qty: 70 0RF azithromycin 500 mg tablet 500 mg PO DAILY 7 Days Qty: 7 0RF Continued multivitamin Tablet 1 tab PO QAM metformin 500 mg tablet extended release 24 hr 500 mg PO DAILY rosuvastatin 10 mg tablet 10 mg PO HS Discharge Orders: Discharge Order (Routine); Ordered 06/21/24 Ordered By: Josh Lantigua Admission Data Admit Date/Time: 06/19/24 13:36 Attending Provider: Kwesi Mcnulty Admit Provider: Hemant Vieira Primary Care Provider: Jem Lei Other Interventions: Discharge Summary Assessment (RN) Last Done: 08/14/24 14:57 Supervising Physician Co-Signing Physician Notes I personally examined the patient and verified all brown points of history and exam, discussed case, and agree with decision making with Dr Lantigua and Anny Syed MS4 Feeling better. Feels up to going home. No new complaints. Vitals noted, in general he is awake and alert pleasant no distress. HEENT normocephalic atraumatic mucous membranes moist. Breathing unlabored no accessory muscle use good effort. Skin shows no rashes no pallor or icterus. Neuro without focal deficits. Babesiosis with concomitant Lymesepsis present on admissionfortunately improving. Suspect the predominance of his sepsis was due to Babesia more so than the Lyme diseasebut obviously both require treatment. Parasitemia 2% which is reassuring Overall appears safe and stable for home. Finish out 10 days total of azithromycin, atovaquone, and doxycycline. Outpatient follow-up, follow labs to resolution. Discussed that unfortunately anticipate a fairly long course back to feeling like his normal selfespecially as it relates to fatigue. otherwise as above
--- NOTE | 2024-06-21 17:47 | Billing Data ---
Date of Service June 21, 2024 Coding Level of Care Code 25735 IN/OBS DISCH 30 MIN/LESS
[2024-06-21 18:12] LABS: Babesia microti DNA Detected (Not Detected)
[2024-06-22 07:09] LABS: Ehrlichia chaff DNA Bld Negative (Negative)
== END 2024-06-21 15:40 | disposition home or self-care (01) | DRG 868 ==
LOC: ED 10:03 → SUATTDRO 13:36 → 3W 13:36